=== PATIENT | female | born 1985 | race Caucasian/White ===

== ENCOUNTER 2017-04-26 06:32 | Inpatient (IN) | payer BC ==
[~2017-04-26 06:32] MED LIST: Lidocaine 1%/Sod Bicarbonate in NS 8.4% 1 ML Syringe PRN; Sodium Chloride 0.9% 10 ML Syringe FLUSH PRN
[2017-04-26] MEDS ORDERED: Lidocaine 1% 4 ML ONE (07:16)
[2017-04-26] MEDS ORDERED: Ketorolac 30 MG/ML SDV ONE (07:16)
[2017-04-26] MEDS ORDERED: Ondansetron 4 MG/2 ML SDV ONE (07:16)
[2017-04-26] MEDS ORDERED: Rocuronium 50 MG/5 ML Vial ONE ×3 (07:16→10:40)
[2017-04-26] MEDS ORDERED: Dexamethasone 4 MG/ML 5 ML MDV ONE (07:16)
[2017-04-26] MEDS ORDERED: HYDROmorphone 1 MG/ML Syringe ONE (07:16)
[2017-04-26] MEDS ORDERED: Lactated Ringers 1,000 ML ONE ×3 (07:16→10:42)
[2017-04-26] MEDS ORDERED: ceFAZolin 1 GM Vial ONE (07:16)
[2017-04-26] MEDS ORDERED: Propofol 200 MG/20 ML SDV ONE ×2 (07:16→08:19)
[2017-04-26] MEDS ORDERED: Midazolam 1 MG/ML 2 ML SDV ONE (07:17)
--- NOTE | 2017-04-26 07:17 | PCM.PREANE ---
Preanesthetic Assessment - Anesthesia/Transfusion/Family Hx Anesthesia History: Prior Anesthesia Without Reaction Type of Anesthesia Reaction: Excessive Nausea/Vomiting Family History of Anesthesia Reaction: No Transfusion History: No Prior Transfusion(s) Intubation History: Unknown - Review of Systems General: No Symptoms Pulmonary: No Symptoms (Patient quit smoking @ 2008) Cardiovascular: No Symptoms Gastrointestinal: No Symptoms Neurological: No Symptoms Other: Reports: Easy Bruising - Physical Assessment NPO Status Date: 04/25/17 NPO Status Time: 23:50 Pulse: 84 O2 Sat by Pulse Oximetry: 97 Respiratory Rate: 18 Blood Pressure: 131/84 Temperature: 36.9 C Height: 1.75 m Weight: 116 kg ASA Class: 2 Mental Status: Alert & Oriented x3 Airway Class: Mallampati = 3 Dentition: Reports: Normal Dentition, Caries Thyro-Mental Finger Breadths: 3 Mouth Opening Finger Breadths: 3 ROM/Head Extension: Full Lungs: Clear to Auscultation, Normal Respiratory Effort Cardiovascular: Regular Rate, Regular Rhythm, No Murmurs - Allergies Allergies/Adverse Reactions: Allergies Allergy/AdvReac Type Severity Reaction Status Date / Time No Known Allergies Allergy Verified 04/25/17 13:41 - Anesthesia Plan Pre-Op Medication Ordered: None - Acknowledgements Anesthesia Type Planned: General Anesthesia Pt an Appropriate Candidate for the Planned Anesthesia: Yes Alternatives and Risks of Anesthesia Discussed w Pt/Guardian: Yes Pt/Guardian Understands and Agrees with Anesthesia Plan: Yes PreAnesthesia Questionnaire HEENT History: Reports: Impaired Vision Cardiovascular History: Reports: None Respiratory History: Reports: None Gastrointestinal History: Reports: None [employer] ASSISTANT History: Reports: Other (See Below) Other OB/BYN History: pelvic pain, menorrhagia Musculoskeletal History: Reports: None Neurological History: Reports: None Psychiatric History: Reports: None Endocrine/Metabolic History: Reports: None Hematologic History: Reports: None Immunologic History: Reports: None Oncologic (Cancer) History: Reports: None Dermatologic History: Reports: None - Past Surgical History Head Surgeries/Procedures: Reports: None GI Surgical History: Reports: Cholecystectomy Female Surgical History: Reports: Tubal Ligation Endocrine Surgical History: Reports: None Neurological Surgical History: Reports: None Musculoskeletal Surgical History: Reports: None Dermatological Surgical History: Reports: None - SUBSTANCE USE Smoking Status *Q: Former Smoker Recreational Drug Use History: No - HOME MEDS Home Medications: Home Meds Plexus Vitamin 1 tab PO DAILY 04/25/17 [History] - CURRENT (IN HOUSE) MEDS Current Meds: Current Medications Lactated Ringer's (Ringers, Lactated) 1,000 mls @ 125 mls/hr IV ASDIRECTED JUSTINE Stop: 04/26/17 23:00 Lidocaine/Sodium Bicarbonate (Buffered Lidocaine 1% In Ns 8.4%) 0.25 ml .XX ONETIME PRN PRN Reason: Prior to IV Start Stop: 04/26/17 18:00 Sodium Chloride (Saline Flush) 10 ml FLUSH ASDIRECTED PRN PRN Reason: Keep Vein Open Stop: 04/26/17 18:00 Discontinued Medications Cefazolin Sodium (Ancef) Confirm Administered Dose 2 gm .ROUTE .STK-MED ONE Stop: 04/26/17 07:17 Dexamethasone (Dexamethasone) Confirm Administered Dose 20 mg .ROUTE .STK-MED ONE Stop: 04/26/17 07:17 Fentanyl (Sublimaze) Confirm Administered Dose 250 mcg .ROUTE .STK-MED ONE Stop: 04/26/17 07:19 Hydromorphone HCl (Dilaudid) Confirm Administered Dose 1 mg .ROUTE .STK-MED ONE Stop: 04/26/17 07:17 Lidocaine HCl (Xylocaine-Mpf 1%) Confirm Administered Dose 4 mls @ as directed .ROUTE .STK-MED ONE Stop: 04/26/17 07:17 Lactated Ringer's (Ringers, Lactated) Confirm Administered Dose 1,000 mls @ as directed .ROUTE .STK-MED ONE Stop: 04/26/17 07:17 Ketorolac Tromethamine (Toradol) Confirm Administered Dose 30 mg .ROUTE .STK- MED ONE Stop: 04/26/17 07:17 Midazolam HCl (Versed 1 Mg/Ml) Confirm Administered Dose 2 mg .ROUTE .STK-MED ONE Stop: 04/26/17 07:18 Ondansetron HCl (Zofran) Confirm Administered Dose 4 mg .ROUTE .STK-MED ONE Stop: 04/26/17 07:17 Propofol (Diprivan 20 Ml) Confirm Administered Dose 200 mg .ROUTE .STK-MED ONE Stop: 04/26/17 07:17 Rocuronium [place] (Zemuron) Confirm Administered Dose 50 mg .ROUTE .STK-MED ONE Stop: 04/26/17 07:17
[2017-04-26] MEDS ORDERED: fentaNYL 250 MCG/5 ML SDV ONE (07:18)
[2017-04-26] MEDS: Lactated Ringers 1,000 ML IV SCH ×2 (07:20→17:04)
[2017-04-26] MEDS ORDERED: Bupivacaine 0.5% 30 ML SDV ONE (07:23)
[2017-04-26] MEDS ORDERED: Sodium Chloride 0.9% 50 ML SDV ONE (07:23)
[2017-04-26] MEDS ORDERED: Lidocaine 1% with EPINEPHrine 1:100,000 20 ML MDV ONE (07:23)
[2017-04-26] MEDS ORDERED: Scopolamine 1.5 MG Transdermal Patch TRDERM ONE (07:30)
[2017-04-26] MEDS ORDERED: Ondansetron 4 MG/2 ML SDV IVPUSH PRN (08:40)
[2017-04-26] MEDS ORDERED: ePHEDrine 50 MG/ML SDV IVPUSH PRN (08:40)
[2017-04-26] MEDS ORDERED: diphenhydrAMINE 50 MG/ML SDV IVPUSH PRN (08:40)
[2017-04-26] MEDS ORDERED: Meperidine PF 50 MG/ML Syringe IVPUSH PRN (08:40)
[2017-04-26] MEDS ORDERED: Phenylephrine 1 MG in Sodium Chloride 0.9% 10 ML IV SCH (08:45)
[2017-04-26] MEDS ORDERED: fentaNYL 100 MCG/2 ML SDV IVPUSH PRN ×2 (09:15→12:30)
[2017-04-26] MEDS ORDERED: HYDROmorphone 0.5 MG/0.5 ML Syringe IVPUSH PRN (09:15)
[2017-04-26] MEDS ORDERED: Neostigmine Methylsulfate 10 MG/10 ML MDV ONE (09:16)
[2017-04-26] MEDS ORDERED: Glycopyrrolate 0.2 MG/ML SDV ONE ×5 (09:16)
[2017-04-26] MEDS ORDERED: Phenylephrine 1% 10 MG/ML SDV ONE (10:17)
[2017-04-26] MEDS ORDERED: fentaNYL 100 MCG/2 ML SDV ONE (10:29)
[2017-04-26] MEDS ORDERED: Acetaminophen/oxyCODONE 325-5 MG Tab PO PRN (11:34)
--- NOTE | 2017-04-26 11:45 | PCM.OPNOTE ---
- General Post-Op/Procedure Note Date of Surgery/Procedure: 04/26/17 Operative Procedure(s): total laparoscopic hysterecomty converted to laparotomy for control of vaginal accessory branch bleeding. Pre Op Diagnosis: menorrhagia, pelvic pain Post-Op Diagnosis: Same Other Anesthesia Type: general Primary Surgeon: Naz Basurto Secondary Surgeon: Yahaira Gayle Anesthesia Provider: Ambar Manuel Pathology: uterus tubes and ovaries Fluid Replacement, Intraop: 3,700 Output, Urine Amount: 250 EBL in mLs: 800 Complications: hemorrhage Condition: Good Free Text/Narrative:: The risks, benefits, indications, potential complications, and alternatives were explained to the patient and informed consent obtained. The patient was taken to the Operating Room where general anesthesia was induced without complication. The patient was placed in dorsal lithotomy with Eder Stirrups and an exam under anesthesia revealed the findings detailed above. The patient was then prepped and draped in the usual sterile fashion. A sterile bivalve speculum was placed into the vagina and the anterior lip of the cervix was grasped with a single tooth tenaculum and a uterine manipulator was placed to allow uterine manipulation throughout the procedure. The speculum and single tooth tenaculum were removed from the vagina. A Silverman catheter was placed in sterile fashion. Attention was then turned to the patients abdomen where a 5 mm skin incision was made in a vertical fashion in the umbilical fold. Next, a Veress needle was carefully introduced into the peritoneal cavity while tenting the abdominal wall. Intraperitoneal placement was confirmed by free flow of saline into the abdomen from a syringe open to gravity and with a low intraabdominal pressure with insufflation of C02 gas on low flow pneumoperitoneum was obtained with C02 gas to a pressure of 15 mm Hg. Next, the 5 mm clear view trocar was inserted into the abdomen with the aid of the 5 mm laparoscope. 5 mm skin incisions were made in both the left and right lower quadrants approximately 10 cm lateral and 3 cm inferior to the umbilicus. 5 mm blunt trocars were inserted into the abdomen under direct visualization with care to avoid the abdominal wall vasculature. A grasper were inserted through the accessory ports and a survey of the abdomen revealed the findings detailed above. The right fallopian tube was elevated with the blunt graspers at the fimbriated end. The right ureter was directly visualized and noted to be below the planned dissection area. The Ligasure was used to grasp, elevate, cauterize and transect the right fallopian tube from the fimbriated end toward the uterus to the level of the round ligament. The round ligament on the right was then elevated, cauterized, and transected with the Ligasure. Hemostasis was noted. Next, a bladder flap was created with the aid of the the Ligasure and also with gentle blunt dissection. The right uterine artery was then skeletonized with the aid of the Ligasure and finally cauterized and transected. Hemostasis was noted. The exact same procedure was carried out on the left. Hemostasis was noted. Cautery was then used to cut on the vagina anteriorly to the cervical cap. At the midpoint of the vaginal entry there was significant vigorous bleeding. Wet lap sponge placed in vagina to attempt to maintain pneumoperitoneum, however given pts body habitus and loss of pneumo it became difficult to visualize the area of bleeding. We then made a decision to go below. Upon attempted entry into the anterior culdesac there were vigorously bleeding abherent vessels that were not able to be visualized well enough to secure them vaginally. Decision made to proceed to laparotomy. We changed gloves and proceeded quickly to laparotomy. Pfannensteil incision made in usual fashion carried down to the underlying layer of fascia which was tented upwards and dissected off underlying layer of rectus muscles in the same fashion inferior aspect tented upwards and dissected off underlying rectus muscles. Peritoneum entered bluntly bowel packed superiorly and pedicles inspected. Excellent hemostasis down the utero-ovarian pedicles and uterine artery. Chanell clamps used bilaterally to enter vagina clamped cut and tied. At this point the only bleeding appeared to be from anterior and posterior vaginal cuff posterior cuff run and locked with number #1 Vicryl cuff and closed in an end-to-end fashion with excellent hemostasis, cuff and remaining pack and pedicles reinspected excellent hemostasis maintained. Instruments then removed lap count correct 2. Fascia closed in usual fashion with #1 PDS. The cuticular area irrigated and reapproximated with 0 Vicryl and skin closed with 3-0 Monocryl on a Quintin needle. All sponge, lap, needle, and instrument counts were correct x 2. Complications: The patient tolerated the procedure well and no complications were
--- NOTE | 2017-04-26 11:47 | PCM.POSTAN ---
POST ANESTHESIA ASSESSMENT - MENTAL STATUS Mental Status: Alert - VITAL SIGNS Pulse Rate: 90 SaO2: 100 Resp Rate: 21 Blood Pressure: 110/85 Temperature: 36.8 C - RESPIRATORY Respiratory Status: Respiratory Rate WNL, Airway Patent, O2 Saturation Stable, Supplemental Oxygen - CARDIOVASCULAR CV Status: Pulse Rate WNL, Blood Pressure Stable - GASTROINTESTINAL GI Status: No Symptoms - POST OP HYDRATION Hydration Status: Adequate & Stable
[2017-04-26] MEDS ORDERED: ceFAZolin 2 GM in Premix Bag 1 BAG IV ONE (12:00)
[2017-04-26] MEDS: Ketorolac 30 MG/ML SDV IVPUSH PRN ×2 (14:52→23:01)
[2017-04-26] MEDS: Benzocaine/Cetylpyridinium/Menthol Lozenge MUCMEM PRN (21:02)
[2017-04-26] MEDS: Simethicone 80 MG Tab.Chew PO PRN (22:59)
[2017-04-27] MEDS: Benzocaine/Cetylpyridinium/Menthol Lozenge MUCMEM PRN (04:45)
[2017-04-27] MEDS: Ketorolac 30 MG/ML SDV IVPUSH PRN (06:48)
[2017-04-27] MEDS: Simethicone 80 MG Tab.Chew PO PRN (06:48)
--- NOTE | 2017-04-27 11:51 | PCM48HPAN ---
Post Anesthesia Note - EVALUATION WITHIN 48HRS OF ANESTHETIC Vital Signs in Normal Range: Yes Patient Participated in Evaluation: Yes Respiratory Function Stable: Yes Airway Patent: Yes Cardiovascular Function Stable: Yes Hydration Status Stable: Yes Pain Control Satisfactory: Yes Nausea and Vomiting Control Satisfactory: Yes Mental Status Recovered: Yes
[2017-04-27] MEDS: Ibuprofen 600 MG Tab PO PRN (18:17)
[2017-04-28] MEDS: Ibuprofen 600 MG Tab PO PRN ×2 (01:56→08:29)
--- NOTE | 2017-04-28 06:46 | PCM.SURGPN ---
- General Info Date of Service: 04/27/17 POD#: 1 Post-Op Diagnosis: menorrhagia, s/p TLH with laparotomy Functional Status: Reports: Pain Controlled, Tolerating Diet, Ambulating - Review of Systems General: Reports: No Symptoms HEENT: Reports: No Symptoms Pulmonary: Reports: No Symptoms Cardiovascular: Reports: No Symptoms Gastrointestinal: Reports: No Symptoms Genitourinary: Reports: No Symptoms Musculoskeletal: Reports: No Symptoms Skin: Reports: No Symptoms Neurological: Reports: No Symptoms Psychiatric: Reports: No Symptoms - Patient Data Vitals - Most Recent: Last Vital Signs Temp 37.1 C 04/28/17 03:54 Pulse 71 04/28/17 03:54 Resp 14 04/28/17 03:54 BP 121/61 04/28/17 03:54 Pulse Ox 98 04/28/17 03:54 Weight - Most Recent: 119.884 kg I&O - Last 24 Hours: Intake & Output 04/27/17 04/27/17 04/28/17 14:59 22:59 06:59 Intake Total 4600 750 Output Total 150 975 800 Balance -150 3625 -50 Lab Results Last 24 Hrs: Laboratory Results - last 24 hr 04/28/17 Range/Units 05:45 WBC 9.32 (3.98-10.04) K/mm3 RBC 3.13 L (3.98-5.22) M/mm3 Hgb 9.1 L (11.2-15.7) gm/L Hct 28.5 L (34.1-44.9) % MCV 91.1 (79.4-94.8) fl MCH 29.1 (25.6-32.2) pg MCHC 31.9 L (32.2-35.5) g/dl RDW Std Deviation 44.8 (36.4-46.3) fL Plt Count 197 (182-369) K/mm3 MPV 10.3 (9.4-12.3) fl Neut % (Auto) 56.3 (34.0-71.1) % Lymph % (Auto) 34.3 (19.3-51.7) % Garrard % (Auto) 7.8 (4.7-12.5) % Eos % (Auto) 1.2 (0.7-5.8) Baso % (Auto) 0.3 (0.1-1.2) % Neut # (Auto) 5.24 (1.56-6.13) K/mm3 Lymph # (Auto) 3.20 (1.18-3.74) K/mm3 [place]ard # (Auto) 0.73 H (0.24-0.36) K/mm3 Eos # (Auto) 0.11 (0.04-0.36) K/mm3 Baso # (Auto) 0.03 (0.01-0.08) K/mm3 Med Orders - Current: Current Medications Benzocaine/Menthol (Cepacol Sore Throat) 1 lozenge MUCMEM Q2H PRN PRN Reason: Sore Throat Last Admin: 04/27/17 04:45 Dose: 1 lozenge Diphenhydramine HCl (Benadryl) 25 mg IVPUSH Q6H PRN PRN Reason: pruritis Ibuprofen (Motrin) 600 mg PO Q6H PRN PRN Reason: Pain Last Admin: 04/28/17 01:56 Dose: 600 mg Lidocaine/Sodium Bicarbonate (Buffered Lidocaine 1% In Ns 8.4%) 0.25 ml .XX ONETIME PRN PRN Reason: Prior to IV Start Last Admin: 04/26/17 07:19 Dose: 0.25 ml Ondansetron HCl (Zofran) 4 mg IVPUSH ONETIME PRN PRN Reason: Nausea/Vomiting Simethicone (Simethicone) 80 mg PO Q6H PRN PRN Reason: Gas Last Admin: 04/27/17 06:48 Dose: 80 mg Sodium Chloride (Saline Flush) 10 ml FLUSH ASDIRECTED PRN PRN Reason: Keep Vein Open Discontinued Medications Bupivacaine HCl (Marcaine 0.5%) Confirm Administered Dose 30 ml .ROUTE .STK-MED ONE Stop: 04/26/17 07:24 Last Admin: 04/26/17 08:37 Dose: 30 ml Cefazolin Sodium (Ancef) Confirm Administered Dose 2 gm .ROUTE .STK-MED ONE Stop: 04/26/17 07:17 Dexamethasone (Dexamethasone) Confirm Administered Dose 20 mg .ROUTE .STK-MED ONE Stop: 04/26/17 07:17 Ephedrine Sulfate (Ephedrine Sulfate) 5 mg IVPUSH ASDIRECTED PRN PRN Reason: Hypotension Fentanyl (Sublimaze) Confirm Administered Dose 250 mcg .ROUTE .STK-MED ONE Stop: 04/26/17 07:19 Fentanyl (Sublimaze) Confirm Administered Dose 100 mcg .ROUTE .STK-MED ONE Stop: 04/26/17 10:30 Fentanyl (Sublimaze) 50 mcg IVPUSH Q5M PRN PRN Reason: Pain Stop: 04/26/17 12:46 Last Admin: 04/26/17 12:31 Dose: 50 mcg Glycopyrrolate (Robinul) Confirm Administered Dose 0.2 mg .ROUTE .STK-MED ONE Stop: 04/26/17 09:17 Glycopyrrolate (Robinul) Confirm Administered Dose 0.2 mg .ROUTE .STK-MED ONE Stop: 04/26/17 09:17 Glycopyrrolate (Robinul) Confirm Administered Dose 0.2 mg .ROUTE .STK-MED ONE Stop: 04/26/17 09:17 Glycopyrrolate (Robinul) Confirm Administered Dose 0.2 mg .ROUTE .STK-MED ONE Stop: 04/26/17 09:17 Glycopyrrolate (Robinul) Confirm Administered Dose 0.2 mg .ROUTE .STK-MED ONE Stop: 04/26/17 09:17 Hydromorphone HCl (Dilaudid) Confirm Administered Dose 1 mg .ROUTE .STK-MED ONE Stop: 04/26/17 07:17 Hydromorphone HCl (Dilaudid) 0.5 mg IVPUSH Q15M PRN PRN Reason: severe pain Stop: 04/26/17 09:31 Lactated Ringer's (Ringers, Lactated) 1,000 mls @ 125 mls/hr IV ASDIRECTED [facility] Last Admin: 04/26/17 17:04 Dose: 125 mls/hr Lidocaine HCl (Xylocaine-Mpf 1%) Confirm Administered Dose 4 mls @ as directed .ROUTE .STK-MED ONE Stop: 04/26/17 07:17 Lactated Ringer's (Ringers, Lactated) Confirm Administered Dose 1,000 mls @ as directed .ROUTE .STK-MED ONE Stop: 04/26/17 07:17 Lactated Ringer's (Ringers, Lactated) Confirm Administered Dose 1,000 mls @ as directed .ROUTE .STK-MED ONE Stop: 04/26/17 08:32 Phenylephrine HCl 1 mg/ Sodium (Chloride) 10.1 mls @ 1 mls/sec IV TITRATE JUSTINE PRN Reason: Protocol Lactated Ringer's (Ringers, Lactated) Confirm Administered Dose 1,000 mls @ as directed .ROUTE .ST-MED ONE Stop: 04/26/17 10:43 Cefazolin Sodium/Dextrose 2 gm (/ Premix) 50 mls @ 100 mls/hr IV ONETIME ONE Stop: 04/26/17 12:29 Last Admin: 04/26/17 12:14 Dose: 100 mls/hr Ketorolac Tromethamine (Toradol) Confirm Administered Dose 30 mg .ROUTE .[facility]- MED ONE Stop: 04/26/17 07:17 Ketorolac Tromethamine (Toradol) 30 mg IVPUSH Q8H PRN PRN Reason: Pain (moderate 4-6) Last Admin: 04/27/17 06:48 Dose: 30 mg Lidocaine/Epinephrine (Xylocaine 1% With Epinephrine 1:100,000) Confirm Administered Dose 20 ml .ROUTE .[facility]-MED ONE Stop: 04/26/17 07:24 Meperidine HCl (Demerol) 12.5 mg IVPUSH ONETIME PRN PRN Reason: shivering Stop: 04/27/17 08:41 Midazolam HCl (Versed 1 Mg/Ml) Confirm Administered Dose 2 mg .ROUTE .ST-MED ONE Stop: 04/26/17 07:18 Neostigmine Methylsulfate (Neostigmine Methylsulfate) Confirm Administered Dose 10 mg .ROUTE .[facility]-MED ONE Stop: 04/26/17 09:17 Ondansetron HCl (Zofran) Confirm Administered Dose 4 mg .ROUTE .[facility]-MED ONE Stop: 04/26/17 07:17 Oxycodone/Acetaminophen (Percocet 325-5 Mg) 2 tab PO Q6H PRN PRN Reason: Pain (moderate 4-6) Phenylephrine HCl ([place]-Synephrine) Confirm Administered Dose 10 mg .ROUTE .STK- MED ONE Stop: 04/26/17 10:18 Propofol (Diprivan 20 Ml) Confirm Administered Dose 200 mg .ROUTE .ST-MED ONE Stop: 04/26/17 07:17 Propofol (Diprivan 20 Ml) Confirm Administered Dose 200 mg .ROUTE .STK-MED ONE Stop: 04/26/17 08:20 Rocuronium [place] (Zemuron) Confirm Administered Dose 50 mg .ROUTE .STK-MED ONE Stop: 04/26/17 07:17 Rocuronium [place] (Zemuron) Confirm Administered Dose 50 mg .ROUTE .STK-MED ONE Stop: 04/26/17 08:46 Rocuronium [place] (Zemuron) Confirm Administered Dose 50 mg .ROUTE .STK-MED ONE Stop: 04/26/17 10:41 Scopolamine (Transderm-Scop) 1.5 mg TRDERM ONETIME ONE Stop: 04/26/17 07:31 Last Admin: 04/26/17 07:30 Dose: 1.5 mg Sodium Chloride (Normal Saline) Confirm Administered Dose 50 ml .ROUTE .STK-MED ONE Stop: 04/26/17 07:24 - Exam Wound/Incisions: Dressing Dry and Intact General: Alert, Oriented HEENT: Pupils Equal Neck: Supple Lungs: Clear to Auscultation, Normal Respiratory Effort Cardiovascular: Regular Rate, Regular Rhythm GI/Abdominal Exam: Normal Bowel Sounds, Soft, Non-Tender, No Organomegaly, No Distention, No Abnormal Bruit, No Mass, Pelvis Stable Extremities: Normal Inspection, Normal Range of Motion, Non-Tender, No Pedal Edema, Normal Capillary Refill Skin: Warm, Dry, Intact Neurological: No New Focal Deficit Psy/Mental Status: Alert, Normal Affect, Normal Mood - Problem List Review Problem List Initiated/Reviewed/Updated: Yes - My Orders Last 24 Hours: Active Orders 24 hr Category Date Time Status Antiembolic Devices [RC] PER UNIT ROUTINE Care 04/27/17 18:01 Active May Shower [RC] ASDIRECTED Care 04/27/17 12:12 Active Ready for Discharge [RC] PER UNIT ROUTINE Care 04/28/17 06:42 Ordered Ibuprofen [Motrin] Med 04/27/17 18:10 Active 600 mg PO Q6H PRN SCD [Sequential Compression Device] [OM.PC] Routine Oth 04/27/17 18:01 Ordered Medication Orders Benzocaine/Menthol (Cepacol Sore Throat) 1 lozenge MUCMEM Q2H PRN PRN Reason: Sore Throat Last Admin: 04/27/17 04:45 Dose: 1 lozenge Admin: 04/26/17 21:02 Dose: 1 lozenge Diphenhydramine HCl (Benadryl) 25 mg IVPUSH Q6H PRN PRN Reason: pruritis Ibuprofen (Motrin) 600 mg PO Q6H PRN PRN Reason: Pain Last Admin: 04/28/17 01:56 Dose: 600 mg Admin: 04/27/17 18:17 Dose: 600 mg Lidocaine/Sodium Bicarbonate (Buffered Lidocaine 1% In Ns 8.4%) 0.25 ml .XX ONETIME PRN PRN Reason: Prior to IV Start Last Admin: 04/26/17 07:19 Dose: 0.25 ml Ondansetron HCl (Zofran) 4 mg IVPUSH ONETIME PRN PRN Reason: Nausea/Vomiting Simethicone (Simethicone) 80 mg PO Q6H PRN PRN Reason: Gas Last Admin: 04/27/17 06:48 Dose: 80 mg Admin: 04/26/17 22:59 Dose: 80 mg Sodium Chloride (Saline Flush) 10 ml FLUSH ASDIRECTED PRN PRN Reason: Keep Vein Open - Plan Plan (Free Text/Narrative):: Doing well. Pain controlled reasonably well. Pt declines narcotics. Probably home tomorrow. REcheck CBC then. I would have expected lower hbg.
[2017-04-28 08:01] VITALS: BP 131/51
== END 2017-04-28 10:23 | disposition home or self-care (01) | DRG 951 ==
LOC: JD.SDS 06:32 → JD.MS 11:32
PROVIDERS: ADMIT Obstetrics & Gynecology; ATTEND Obstetrics & Gynecology
PROC: 0UT90ZZ Resection of Uterus, Open Approach (ICD-10-PCS; principal; 2017-04-26)
PROC: 0UJD4ZZ Inspection of Uterus and Cervix, Percutaneous Endoscopic Approach (ICD-10-PCS; 2017-04-26)
PROC: 0UT20ZZ Resection of Bilateral Ovaries, Open Approach (ICD-10-PCS; 2017-04-26)
PROC: 0UT70ZZ Resection of Bilateral Fallopian Tubes, Open Approach (ICD-10-PCS; 2017-04-26)
PROC: 0W3R0ZZ Control Bleeding in Genitourinary Tract, Open Approach (ICD-10-PCS; 2017-04-26)
DX: R10.2 Pelvic and perineal pain (principal); N92.0 Excessive and frequent menstruation with regular cycle
CPT/HCPCS: 00840; 36415; 81025; 85025; 86850; 86900; 86901; 86922; A9270-GY; J0690; J1100; J1170; J1885; J2250; J2370; J2405; J2704; J2710; J3010; J3490; J7120